=== PATIENT | male | born 1960 | race Caucasian/White ===

== ENCOUNTER 2018-01-25 13:01 | Emergency (ER) | payer MEDICAID ==
[~2018-01-25] VITALS: Ht 177.8 cm; Wt 81.8 kg
[2018-01-25 14:10] VITALS: BP 100/60
[2018-01-25] MEDS ORDERED: BACITRACIN 0.9 GM PACKET OINTMENT TP ONE (14:15)
[2018-01-25] MEDS ORDERED: ACETAMINOPHEN 500 MG TABLET PO ONE (14:15)
[2018-01-25] MEDS ORDERED: LIDOCAINE/PF 1% 5 ML VIAL INJ ONE (14:15)
[2018-01-25 14:34] LABS: GLUCOSE,POINT OF CARE 124 MG/DL (70-110)
[2018-01-25] MEDS ORDERED: CEPHALEXIN MONOHYDRATE 500 MG CAPSULE PO ONE (14:45)
== END 2018-01-25 15:36 | disposition home or self-care (01) ==
LOC: EMS 13:03
DX: S62.631B Displaced fracture of distal phalanx of left index finger, initial encounter for open fracture (principal); S61.211A Laceration without foreign body of left index finger without damage to nail, initial encounter; S61.213A Laceration without foreign body of left middle finger without damage to nail, initial encounter; F17.210 Nicotine dependence, cigarettes, uncomplicated; E11.9 Type 2 diabetes mellitus without complications; I10 Essential (primary) hypertension; W45.8XXA Other foreign body or object entering through skin, initial encounter; Y93.89 Activity, other specified; Y92.89 Other specified places as the place of occurrence of the external cause; Y99.8 Other external cause status
CPT/HCPCS: 12002; 73130; 82948; 82962; 99284; 99406; J3490

== ENCOUNTER 2018-02-01 15:54 | Emergency (ER) | payer MEDICAID ==
[~2018-02-01] VITALS: Ht 172.7 cm; Wt 80.9 kg
[2018-02-01 16:08] LABS: GLUCOSE,POINT OF CARE 169 MG/DL (70-110)
[2018-02-01 18:51] VITALS: BP 110/70
== END 2018-02-01 19:09 | disposition home or self-care (01) ==
LOC: EMS 15:56
DX: S61.211D Laceration without foreign body of left index finger without damage to nail, subsequent encounter (principal); S61.213D Laceration without foreign body of left middle finger without damage to nail, subsequent encounter; X58.XXXD Exposure to other specified factors, subsequent encounter
CPT/HCPCS: 99282